=== PATIENT | female | born 1945 | race African-American/Black ===

== ENCOUNTER 2018-09-20 00:39 | Emergency (ER) | payer OTHER ==
[~2018-09-20] VITALS: Ht 172.7 cm; Wt 104.0 kg
[2018-09-20] MEDS ORDERED: KETOROLAC 15MG/ML VIAL IV ONE (01:30)
[2018-09-20 07:01] VITALS: BP 152/45
== END 2018-09-20 07:15 | disposition short-term general hospital (02) ==
LOC: ER 00:39
DX: M54.12 Radiculopathy, cervical region (principal); E11.9 Type 2 diabetes mellitus without complications; E78.00 Pure hypercholesterolemia, unspecified; I10 Essential (primary) hypertension; I44.7 Left bundle-branch block, unspecified; Z90.49 Acquired absence of other specified parts of digestive tract; Z88.8 Allergy status to other drugs, medicaments and biological substances
CPT/HCPCS: 71045; 82962; 93005; 99285

== ENCOUNTER 2018-10-07 09:03 | Inpatient (IN) | payer OTHER ==
[~2018-10-07] VITALS: Ht 170.2 cm; Wt 106.1 kg
[2018-10-07] MEDS ORDERED: COR25 MT (09:34)
[2018-10-07] MEDS ORDERED: SPIR25TA MT (09:34)
[2018-10-07] MEDS ORDERED: AMLO10TA80 MT (09:35)
[2018-10-07] MEDS ORDERED: LOSA100T3 MT (09:35)
[2018-10-07] MEDS ORDERED: CLOP75TA16 MT (09:35)
[2018-10-07] MEDS ORDERED: RANO10003 PO (09:35)
[2018-10-07 09:43] LABS: BASOPHILS % 1.2 % (0.0-2.0); EOSINOPHILS % 2.1 % (0.0-5.0); HEMATOCRIT. 35.9 % (36.0-48.0); LYMPHOCYTES % 34.5 % (20.0-50.0); MEAN CORPUSCULAR HEMOGLOBIN 31.1 pg (28.0-32.0); MEAN CORPUSCULAR VOLUME 92.6 fL (81.0-99.0); MEAN PLATELET VOLUME 9.5 fl (7.4-10.4); NEUTROPHILS % 55.2 % (40.0-76.0); PLATELET 205 x1000/uL (130-400); RED BLOOD CELL COUNT 3.87 mill/uL (4.2-5.4); RED CELL DISTRIBUTION WIDTH 13.1 % (11.6-14.6)
[2018-10-07 09:47] LABS: CHLORIDE 107 mEq/L (98-107)
[2018-10-07] MEDS ORDERED: SODIUM POLYSTYRENE SULFONATE 15 G/60 ML BOT PO NR (12:00)
[2018-10-07 14:35] VITALS: BP 169/56
[2018-10-07] MEDS ORDERED: MEDICATION NOT ON FORMULARY EA (Clopidogrel Bisulfate (Plavix) 1 TAB) MT SCH (15:30)
[2018-10-07] MEDS ORDERED: MEDICATION NOT ON FORMULARY EA (Losartan Potassium (Cozaar) 1 TAB) MT SCH (15:30)
[2018-10-07] MEDS ORDERED: ISOSORBIDE MONONITRATE MT SCH (15:30)
[2018-10-07] MEDS ORDERED: DEXTROSE 50% WATER 50ML SYRINGE IV PRN (15:30)
[2018-10-07] MEDS ORDERED: SPIRONOLACTONE MT SCH (15:30)
[2018-10-07] MEDS ORDERED: LIP40 MT (15:33)
[2018-10-07] MEDS ORDERED: ISOS60TA4 MT (15:33)
[2018-10-07 16:00] VITALS: BP 150/59
[2018-10-07] MEDS: CLOPIDOGREL 75MG TABLET PO SCH (16:03)
[2018-10-07] MEDS: CARVEDILOL 25MG TABLET PO SCH (16:04)
[2018-10-07] MEDS: AMLODIPINE 10MG TABLET PO SCH (16:04)
[2018-10-07] MEDS: BLOOD SUGAR DIAGNOSTIC STRIP TEST SCH ×2 (16:38→21:40)
[2018-10-07] MEDS ORDERED: MEDICATION NOT ON FORMULARY EA (Ranolazine (Ranexa) 1,000 MG) PO SCH (17:00)
[2018-10-07] MEDS: INSULIN LISPRO 100 UNITS/ML SUBCUT SCH ×2 (17:02→21:35)
[2018-10-07] MEDS ORDERED: LORAZEPAM 2MG/ML CPJ IV PRN (17:30)
[2018-10-07] MEDS ORDERED: IPRATROPIUM/ALBUTEROL 0.5-3(2.5)MG/3ML NEB INH PRN (17:30)
[2018-10-07] MEDS ORDERED: ONDANSETRON HCL 4MG/2ML INJ IV PRN (17:30)
[2018-10-07] MEDS ORDERED: ACETAMINOPHEN 650MG/20.3ML UDC GT PRN (17:30)
[2018-10-07 20:00] VITALS: BP 128/50
[2018-10-07] MEDS: ATORVASTATIN CALCIUM 40MG TABLET PO SCH (21:39)
[2018-10-07] MEDS: ENOXAPARIN 30MG/0.3ML SYR SUBCUT SCH (21:40)
[2018-10-07 22:44] LABS: CREATINE KINASE 100 IU/L (26-192)
[2018-10-07 22:45] LABS: CREATINE KINASE MB FRACTION < 1.0 ng/mL (0.5-3.6)
[2018-10-07] MEDS: RANOLAZINE 500 MG TAB.SR.12H PO SCH (23:57)
[2018-10-08] VITALS (7 sets, daily range): BP systolic 114–139; BP diastolic 40–60
[2018-10-08 05:57] LABS: BASOPHILS % 0.7 % (0.0-2.0); HEMATOCRIT. 33.4 % (36.0-48.0); HEMOGLOBIN. 11.4 g/dL (12.0-16.0); LYMPHOCYTES % 32.3 % (20.0-50.0); MEAN CORPUSCULAR HEMOGLOBIN 31.5 pg (28.0-32.0); MEAN PLATELET VOLUME 9.6 fl (7.4-10.4); MONOCYTES % 7.8 % (2.0-8.0); NEUTROPHILS % 57.2 % (40.0-76.0); PLATELET 195 x1000/uL (130-400); RED BLOOD CELL COUNT 3.64 mill/uL (4.2-5.4); RED CELL DISTRIBUTION WIDTH 12.6 % (11.6-14.6)
[2018-10-08] MEDS: INSULIN LISPRO 100 UNITS/ML SUBCUT SCH ×4 (06:28→21:50)
[2018-10-08] MEDS: BLOOD SUGAR DIAGNOSTIC STRIP TEST SCH ×4 (06:28→21:32)
[2018-10-08 06:32] LABS: CHLORIDE 106 mEq/L (98-107)
[2018-10-08 06:38] LABS: PHOSPHORUS 3.5 mg/dL (2.5-4.9)
[2018-10-08 06:41] LABS: CREATINE KINASE 82 IU/L (26-192)
[2018-10-08 06:43] LABS: CREATINE KINASE MB FRACTION < 1.0 ng/mL (0.5-3.6)
[2018-10-08] MEDS: RANOLAZINE 500 MG TAB.SR.12H PO SCH ×2 (08:57→21:31)
[2018-10-08] MEDS: CARVEDILOL 25MG TABLET PO SCH ×2 (08:57→18:14)
[2018-10-08] MEDS: CLOPIDOGREL 75MG TABLET PO SCH (08:57)
[2018-10-08] MEDS: AMLODIPINE 10MG TABLET PO SCH (08:57)
[2018-10-08] MEDS: ENOXAPARIN 30MG/0.3ML SYR SUBCUT SCH ×2 (08:59→21:32)
[2018-10-08] MEDS ORDERED: ISOSORBIDE MONONITRATE 60MG TABLET SR 24HR PO SCH (09:00)
[2018-10-08] MEDS ORDERED: LACTULOSE 20G/30ML UDC PO SCH (11:15)
[2018-10-08] MEDS ORDERED: NA PHOS,M-B/NA PHOS,DI-BA ENEMA 118ML PR ONE (11:15)
[2018-10-08] MEDS ORDERED: NA PHOS,M-B/NA PHOS,DI-BA ENEMA 118ML PR PRN (11:30)
[2018-10-08] MEDS: LACTULOSE 20G/30ML UDC PO PRN ×2 (12:01→18:13)
[2018-10-08] MEDS: MORPHINE SULFATE 10 MG/ML CPJ IV PRN ×2 (12:02→21:53)
[2018-10-08 13:42] LABS: *AMPHETAMINES SCREEN URINE NEGATIVE (NEGATIVE); *BENZODIAZEPINES SCREEN URINE NEGATIVE (NEGATIVE); *COCAINE SCREEN URINE NEGATIVE (NEGATIVE)
[2018-10-08 13:43] LABS: *BARBITURATES SCREEN URINE NEGATIVE (NEGATIVE); CANNABINOID URINE SCREEN NEGATIVE (NEGATIVE); OPIATES URINE SCREEN NEGATIVE (NEGATIVE); PHENCYCLIDINE URINE SCREEN NEGATIVE (NEGATIVE)
[2018-10-08 13:50] LABS: METHADONE URINE SCREEN NEGATIVE (NEGATIVE)
[2018-10-08] MEDS ORDERED: LOSARTAN POTASSIUM 100 MG TABLET PO SCH (17:00)
[2018-10-08] MEDS ORDERED: SPIRONOLACTONE 25MG TABLET PO SCH (17:00)
[2018-10-08] MEDS: ATORVASTATIN CALCIUM 40MG TABLET PO SCH (21:31)
== END 2018-10-08 22:50 | disposition short-term general hospital (02) | DRG 313 ==
LOC: ER 09:03 → 8WST 11:26 → EDBEDREQ 11:27 → EDBEDREQTM 11:27 → ENRESERV 12:50
PROVIDERS: ADMIT Internal Medicine Nephrology; ATTEND Internal Medicine Nephrology
DX: R07.89 Other chest pain (principal); E78.5 Hyperlipidemia, unspecified; K21.9 Gastro-esophageal reflux disease without esophagitis; E66.01 Morbid (severe) obesity due to excess calories; E87.5 Hyperkalemia; I25.10 Atherosclerotic heart disease of native coronary artery without angina pectoris; I13.10 Hypertensive heart and chronic kidney disease without heart failure, with stage 1 through stage 4 chronic kidney disease, or unspecified chronic kidney disease; E11.22 Type 2 diabetes mellitus with diabetic chronic kidney disease; N18.9 Chronic kidney disease, unspecified; I25.2 Old myocardial infarction; Z68.36 Body mass index [BMI] 36.0-36.9, adult; Z88.8 Allergy status to other drugs, medicaments and biological substances; Z79.899 Other long term (current) drug therapy; Z79.02 Long term (current) use of antithrombotics/antiplatelets; Z90.49 Acquired absence of other specified parts of digestive tract
CPT/HCPCS: 36415; 71045; 80048; 80305; 82550; 82553; 82962; 83735; 83880; 84100; 84484; 93005; 93306; 99285; J1650; J1815; J2270